=== PATIENT | female | born 1945 | race Hispanic/Latino ===

== ENCOUNTER 2018-02-06 14:04 | Emergency (ER) | payer OTHER ==
[2018-02-06] MEDS ORDERED: ONDANSETRON HCL 4 MG/2 ML VIAL ONE (14:43)
[2018-02-06] MEDS ORDERED: SODIUM CHLORIDE 0.9% 1000ML 1,000 ML IV ONE (14:43)
[2018-02-06 14:54] LABS: CREATININE 1.3 mg/dL (0.5-1.5); POTASSIUM 4.2 mmol/L (3.5-5.1)
[2018-02-06 14:58] LABS: ALBUMIN 4.1 g/dL (3.5-5.0); BILIRUBIN,TOTAL 0.6 mg/dL (0.2-1.0); TOTAL PROTEIN, SERUM 8.6 g/dL (6.0-8.3)
[2018-02-06 15:12] LABS: BASOPHILS % (AUTO) 0.4 % (0.0-5.0); EOSINOPHILS % (AUTO) 1.7 % (0.0-8.0); MEAN CORPUSCULAR HEMOGLOBIN 27.3 pg (27.0-33.0); MEAN CORPUSCULAR HGB CONC 32.4 g/dL (32.0-36.0); MEAN CORPUSCULAR VOLUME 84.3 fL (79-99); MONOCYTES % (AUTO) 8.6 % (3.0-13.0); NEUTROPHILS % (AUTO) 82.3 % (40.0-77.0); NUCLEATED RED BLOOD CELLS 0.1 % (0.0-0.19); PLATELET COUNT (AUTO) 272 K/uL (130-400); RED CELL DISTRIBUTION WIDTH 15.4 % (11.0-15.5); WHITE BLOOD COUNT (AUTO) 10.6 K/uL (4.8-10.8)
[2018-02-06] MEDS ORDERED: LEVOFLOXACIN 500 MG TABLET ONE (17:51)
== END 2018-02-06 18:16 | disposition home or self-care (01) ==
LOC: EDH 14:04
DX: A09 Infectious gastroenteritis and colitis, unspecified (principal); E11.9 Type 2 diabetes mellitus without complications; E78.5 Hyperlipidemia, unspecified; I10 Essential (primary) hypertension; Z90.49 Acquired absence of other specified parts of digestive tract
CPT/HCPCS: 36415; 80053; 82150; 82550; 83690; 85025; 96361; 96374; 99283; J2405; J7030

== ENCOUNTER 2018-08-27 11:57 | Observation (INO) | payer OTHER ==
[~2018-08-27] VITALS: Ht 154.9 cm; Wt 59.8 kg
[2018-08-27] MEDS ORDERED: CEFTRIAXONE SODIUM 2 GM VIAL ONE (12:32)
[2018-08-27] MEDS ORDERED: ONDANSETRON HCL 4 MG/2 ML VIAL ONE (12:32)
[2018-08-27] MEDS ORDERED: SODIUM CHLORIDE 0.9% 50 ML IV ONE (12:33)
[2018-08-27] MEDS ORDERED: SODIUM CHLORIDE 0.9% 1000ML 1,000 ML IV ONE (12:33)
[2018-08-27 12:34] LABS: BASOPHILS % (AUTO) 0.4 % (0.0-5.0); EOSINOPHILS % (AUTO) 0.1 % (0.0-8.0); HEMATOCRIT 38.5 % (36-48); LYMPHOCYTES % (AUTO) 7.4 % (21.0-51.0); MEAN CORPUSCULAR HEMOGLOBIN 31.9 pg (27.0-33.0); MEAN CORPUSCULAR HGB CONC 34.2 g/dL (32.0-36.0); MEAN CORPUSCULAR VOLUME 93.2 fL (79-99); MONOCYTES % (AUTO) 4.7 % (3.0-13.0); NEUTROPHILS % (AUTO) 87.4 % (40.0-77.0); PLATELET COUNT (AUTO) 194 K/uL (130-400); RED BLOOD CELL COUNT(AUTO) 4.13 MIL/uL (4.00-5.50); RED CELL DISTRIBUTION WIDTH 14.2 % (11.0-15.5); WHITE BLOOD COUNT (AUTO) 10.9 K/uL (4.8-10.8)
[2018-08-27 12:36] LABS: APPEARANCE,URINE CLOUDY (CLEAR); BILIRUBIN,URINE NEGATIVE (NEGATIVE); COLOR,URINE YELLOW (YELLOW); GLUCOSE, URINE (UA) NEGATIVE (NEGATIVE); KETONES,URINE NEGATIVE (NEGATIVE); LEUKOCYTE ESTERASE ,URINE MODERATE (NEGATIVE); NITRATE,URINE NEGATIVE (NEGATIVE); OCCULT BLOOD,URINE LARGE (NEGATIVE); PROTEIN,URINE 100 mg/dL (NEGATIVE); UROBILINOGEN,URINE 0.2 mg/dL (0.2-1.0)
[2018-08-27 12:43] LABS: INR 1.11 (0.85-1.15); PROTHROMBIN TIME 11.6 SEC (9.6-11.6)
[2018-08-27 12:44] LABS: BACTERIA,URINE Many /HPF (None Seen); SQUAMOUS EPITHELIAL CELL,UR Rare /HPF (0-2); WBC,URINE TNTC /HPF (0-1)
[2018-08-27 12:53] LABS: CARBON DIOXIDE 20 mmol/L (21-32); CHLORIDE 98 mmol/L (101-111); CREATININE 1.3 mg/dL (0.5-1.5); GLOMERULAR FILTR. RATE CALC 43 mL/min (>60); GLUCOSE,RANDOM 167 mg/dL (70-105); SODIUM SERUM 134 mmol/L (136-145); UREA NITROGEN, BLOOD 16 mg/dL (7-18)
[2018-08-27 13:05] LABS: ALANINE AMINOTRANSFERASE 71 U/L (12-78); ALBUMIN 3.5 g/dL (3.5-5.0); ASPARTATE AMINOTRANSFERASE 85 U/L (10-37); BILIRUBIN,TOTAL 1.1 mg/dL (0.2-1.0); CREATINE KINASE, TOTAL 61 U/L (21-232); MYOGLOBIN 71 ng/mL (10-92); TOTAL PROTEIN, SERUM 7.5 g/dL (6.0-8.3); TROPONIN I < 0.04 ng/mL (0.00-0.06)
[2018-08-27] MEDS ORDERED: LEVOFLOXACIN 750 MG/D5W 150 ML 150 ML ONE (18:43)
[2018-08-27] MEDS ORDERED: 1/2 NORMAL SALINE 1,000 ML IV ONE (18:46)
[2018-08-27] MEDS ORDERED: ENOXAPARIN SODIUM 40 MG/0.4 ML SYRINGE SQ ONE (21:10)
[2018-08-27] MEDS ORDERED: INSULIN HUMULIN R 100 UNIT/ML 3ML ONE (21:12)
--- NOTE | 2018-08-27 23:45 | NUR ---
ADMIT PT ADMITTED TO ROOM 323, AAOX3. PT ABLE TO AMBULATE BUT LOOSES BALANCE, NEEDS ASSIST. ADMISSION CARE DONE. ADMISSION DATA BASE COMPLETED. CONTINUED IVF OF 1/2 NS FROM ER AT 125CC/HR VIA IV PUMP. ORIENTED TO ROOM AND UNIT. RE-ITERATED FALL PRECAUTIONS. BED ALARM TURNED ON. PT'S SISTER CLAIMS SHE IS STAYING THE NIGHT AND WILL HELP ASSIST PT. IN FOR MORE CARE AND MANAGEMENT. Addendum: 08/28/18 at 0048 by XOCHITL TAPIA RN RN Amended: Links added.
[2018-08-28] VITALS: BP 125/41
[2018-08-28] MEDS ORDERED: ACETAMINOPHEN 325 MG TAB PO PRN (00:30)
[2018-08-28] MEDS: 1/2 NORMAL SALINE 1,000 ML IV SCH ×2 (00:30→05:13)
[2018-08-28] MEDS ORDERED: DEXTROSE 50%-WATER 50 ML DISP.SYRIN IV PRN (00:30)
[2018-08-28] MEDS ORDERED: GLUCAGON 1MG KIT 1 MG ML IM PRN (00:30)
--- NOTE | 2018-08-28 02:00 | NUR ---
ROUNDS PT RESTING WELL, FAIRLY ASLEEP WITH RESPIRATIONS EVEN AND UNLABORED. NO DISTRESS NOTED. CALL LIGHT WITHIN REACH. WILL MONITOR PT.
[2018-08-28 03:59] VITALS: BP 120/51
--- NOTE | 2018-08-28 05:06 | NUR ---
BM PT HAD GONE TO THE RESTROOM THEN CLAIMS SHE HAD A BM BUT IS CONSTIPATED. NO FURTHER CONCERNS VERBALIZED. CONTINUED IVF INFUSION, NEW BAG HUNG. KEPT RESTED. FOR MORE CARE.
[2018-08-28 05:27] LABS: HEMATOCRIT 33.4 % (36-48); MEAN CORPUSCULAR HEMOGLOBIN 31.3 pg (27.0-33.0); MEAN CORPUSCULAR HGB CONC 33.6 g/dL (32.0-36.0); PLATELET COUNT (AUTO) 175 K/uL (130-400); RED BLOOD CELL COUNT(AUTO) 3.59 MIL/uL (4.00-5.50); RED CELL DISTRIBUTION WIDTH 13.9 % (11.0-15.5); WHITE BLOOD COUNT (AUTO) 15.7 K/uL (4.8-10.8)
[2018-08-28 06:25] LABS: ALBUMIN 2.7 g/dL (3.5-5.0); BILIRUBIN,TOTAL 0.6 mg/dL (0.2-1.0); CREATININE 1.3 mg/dL (0.5-1.5); POTASSIUM 3.4 mmol/L (3.5-5.1); TOTAL PROTEIN, SERUM 6.3 g/dL (6.0-8.3)
--- NOTE | 2018-08-28 06:42 | NUR ---
MD DR BAXTER IN TO SEE PT. D/C ORDERS GIVEN, PLEASE REFER TO CPOE. ENDORSING TO AM SHIFT FOR MORE CARE.
[2018-08-28 07:00] VITALS: BP 110/53
[2018-08-28] MEDS ORDERED: INSULIN HUMULIN R 100 UNIT/ML 3ML SQ SCH (07:30)
[2018-08-28] MEDS ORDERED: ENOXAPARIN SODIUM 40 MG/0.4 ML SYRINGE SQ SCH (09:00)
[2018-08-28] MEDS ORDERED: CEFTRIAXONE SODIUM 1 GM IVP SCH (13:00)
[2018-08-29] MEDS ORDERED: LEVOFLOXACIN 750 MG/D5W 150 ML 150 ML IV SCH (09:00)
== END 2018-08-28 09:00 | disposition home or self-care (01) ==
LOC: EDH 11:57 → INTOOBSV 18:28 → EDHIP 18:28 → 3DH 23:26
PROVIDERS: ADMIT Internal Medicine; ATTEND Internal Medicine
DX: N12 Tubulo-interstitial nephritis, not specified as acute or chronic (principal); E11.9 Type 2 diabetes mellitus without complications; R11.2 Nausea with vomiting, unspecified; E78.5 Hyperlipidemia, unspecified; I10 Essential (primary) hypertension; Z90.49 Acquired absence of other specified parts of digestive tract; Z79.899 Other long term (current) drug therapy; Z79.01 Long term (current) use of anticoagulants
CPT/HCPCS: 36415 ×2; 71045; 74176; 80053 ×2; 81001; 82550; 82948 ×2; 83605 ×2; 83874; 84484; 85025; 85027; 85610; 85730; 87040; 87077; 87088; 87186; 93005; 96360; 96361; 99284; G0378 ×15; J0696; J1650; J1815; J1956; J2405; J7030

== ENCOUNTER → 2019-04-02 | Outpatient (CLI) | payer OTHER | END | disposition home or self-care (01) | LOC: OIH 15:15 | PROVIDERS: ATTEND Family Medicine | DX: M17.12 Unilateral primary osteoarthritis, left knee (principal) | CPT/HCPCS: 73562 ==

== ENCOUNTER → 2021-12-03 | Outpatient (CLI) | payer OTHER | END | disposition home or self-care (01) | LOC: SHCH 10:40 | PROVIDERS: ATTEND Internal Medicine Cardiovascular Disease | DX: I08.0 Rheumatic disorders of both mitral and aortic valves (principal); I11.9 Hypertensive heart disease without heart failure; E11.9 Type 2 diabetes mellitus without complications; E78.5 Hyperlipidemia, unspecified | CPT/HCPCS: 93306 ==

== ENCOUNTER 2023-10-13 14:44 | Emergency (ER) | payer OTHER, MEDICAID ==
[~2023-10-13] VITALS: Ht 154.9 cm; Wt 60.8 kg
[2023-10-13 19:19] VITALS: BP 141/41; PULSE 77; RESP 18; O2SAT 98
== END 2023-10-13 19:30 | disposition home or self-care (01) ==
LOC: EDH 14:44
DX: Z04.9 Encounter for examination and observation for unspecified reason (principal); E11.9 Type 2 diabetes mellitus without complications; I10 Essential (primary) hypertension; Z90.49 Acquired absence of other specified parts of digestive tract; V89.2XXA Person injured in unspecified motor-vehicle accident, traffic, initial encounter; Y93.89 Activity, other specified; Y92.488 Other paved roadways as the place of occurrence of the external cause; Y99.8 Other external cause status
CPT/HCPCS: 70450; 71045; 72125

== ENCOUNTER → 2023-12-18 | Outpatient (CLI) | payer OTHER, MEDICARE ==
--- NOTE | 2023-12-22 00:41 | HMCSR ---
APPROVED REPORT EXAM: Two-dimensional and M-mode echocardiogram with Doppler and color Doppler. INDICATION ICD: Cardiac murmur, unspecified R01.1 RISK FACTORS Hypertension Hyperlipidemia Diabetes 2D Dimensions RVDd2.9 cmLVEF(%)58.3 (>50%)LVED Vol(simp.)71.0 mL IVSd1.1 (0.7-1.1cm)FS(%)30 %LVES Vol(simp.)30.0 mL LVDd3.7 (3.8-5.6cm)LA (2D)3.4 (1.6-4.0cm)LVEF(%, simp.)57 % PWd1.1 (0.7-1.1cm)Ao Root(2D)2.3 (2.0-3.7cm)LA ESV INDEX (BP)26.45 mL/m2 LVDs2.6 (2.5-4.0cm)LVOT diam1.9 (1.8-2.4cm) IVC diam1.0 cm M-Mode Dimensions LA (MM)4.1 (1.6-4.0cm) Ao Root(MM)2.0 (2.0-3.7cm) Aortic Valve AoV Vmax2.4 m/Cassidy Peak GR23.5 mmHgLVOT Vmax1.1 m/s AoV VTI0.5 mAo Mean GR11.6 mmHgLVOT VTI0.28 m EMMY (VMAX)1.4 cm2Al P1/2T411 msAVA (VTI) 1.4 cm2 Mitral Valve MV E Vmax79.2 cm/sDECEL Qdmv947 ms MV A Wagm805.2 cm/s E/A ratio0.7 MR Max PG81 mmHg TDI E/E' Wsrjdz20.3E/E' Zfanauc51.5 Pulmonary Valve PV Vmax1.0 m/sPV VTI0.20 mPV Mean GR2 mmHg PV Peak GR4.1 mmHgPI End Flor. Elliott 0.5 cm/s Tricuspid Valve TR Vmax2.2 m/sRAP (EST) 3 stPvZFST25.6 mmHg TR Peak GR19.6 mmHg Left Ventricle The left ventricle is normal in size. No regional wall motion abnormalities noted. Moderate concentri c left ventricular hypertrophy. Left ventricular systolic function is normal, estimated LVEF is 55 to 60%. Grade 1 diastolic dysfunction Right Ventricle The right ventricle is normal size. The right ventricular systolic function is normal. Atria The left atrium size is normal. The right atrium size is normal. Aortic Valve Aortic valve is trileaflet. The leaflets are thickened and calcified. Moderate aortic regurgitation, pressure half-time 399 ms. Mild aortic stenosis, peak velocity 2.4 m/s, mean gradient 12 mmHg. Mitral Valve The mitral valve is normal in structure and function. The leaflets are mildly thickened and calcified . The mitral chordae is calcified. Trace-mild mitral regurgitation. There is no mitral valve stenosis . Tricuspid Valve The tricuspid valve leaflets appear normal. Trace tricuspid regurgitation. RVSP is 20 mmHg. Pulmonic Valve Pulmonic valve is not well visualized. Great Vessels The aortic root is normal in size. The ascending aorta measures 3.0 cm. The IVC is normal in size and collapses >50% with inspiration. Pericardium No pericardial effusion. Conclusion The cardiac chambers are normal in size. Moderate concentric left ventricular hypertrophy. No regional wall motion abnormalities noted. Left ventricular systolic function is normal, estimated LVEF is 55 to 60%. Grade 1 diastolic dysfunction Mild aortic stenosis, peak velocity 2.4 m/s, mean gradient 12 mmHg. Moderate aortic regurgitation, pressure half-time 399 ms. Trace-mild mitral regurgitation. Trace tricuspid regurgitation. PASP is 23 mmHg. No pericardial effusion.
== END | disposition home or self-care (01) ==
LOC: SHCH 08:05
PROVIDERS: ATTEND Internal Medicine Cardiovascular Disease
DX: I08.0 Rheumatic disorders of both mitral and aortic valves (principal); I11.9 Hypertensive heart disease without heart failure; R01.1 Cardiac murmur, unspecified; E11.9 Type 2 diabetes mellitus without complications; E78.5 Hyperlipidemia, unspecified
CPT/HCPCS: 93306